=== PATIENT | male | born 1940 | race African-American/Black ===

== ENCOUNTER → 2021-03-17 | Day surgery (SDC) | payer MEDICARE ==
[~2021-03-17] VITALS: Ht 185.4 cm; Wt 109.0 kg
[~2021-03-17] MED LIST: ASPI325T8 PO; CHOL5000 PO; CRESTOR5 MG PO; EPLE50TA3 PO; FLUT16SP NS; FURO40TA4 PO; IMIP10TA2 PO; LIDOCAINE 1%/EPI 1:100,000 20 ML VIAL. INJ ONE; LORA10TA3 PO; LOSA-73 PO; TAMS0.4C97 PO
[2021-03-17 10:51] VITALS: BP 123/74
--- NOTE | 2021-03-17 13:01 | PDOC ---
SURGICAL PROGRESS NOTE DATE: 03/17/21 TIME: 13:00 No change in dictated H&P Vital Signs Vital Signs Date Time Temp Pulse Resp B/P (MAP) Pulse Ox O2 Delivery O2 Flow Rate FiO2 03/17/21 10:51 64 20 97 Justicifation of Admission Dx: Justifications for Admission: Justification of Admission Dx: Yes YAA LANGE MD Mar 17, 2021 13:01
--- NOTE | 2021-03-17 13:03 | PDOC ---
SURGICAL PROGRESS NOTE DATE: 03/17/21 TIME: 13:01 Op Note: Surgeon........................................Jean Pre and post op diag........................mass right upper lateral back Anesthesia.....................................1% lidocaine with epi Procedure.......................................excision mass back......8cm incision. Drains............................................none Blood loss.....................................5cc Fluids...........................................none condition......................................satisfactory Vital Signs Vital Signs Date Time Temp Pulse Resp B/P (MAP) Pulse Ox O2 Delivery O2 Flow Rate FiO2 03/17/21 10:51 64 20 97 Justicifation of Admission Dx: Justifications for Admission: Justification of Admission Dx: Yes YAA LANGE MD Mar 17, 2021 13:03
--- NOTE | 2021-03-17 13:15 | DISCH ---
DISCHARGE INSTRUCTIONS Condition on Discharge Condition on Discharge: Stable Activity After Discharge Activity Instructions for Disc: No restrictions Diet after Discharge Diet after Discharge: [place] Additional Diet Restrictions: resume pre op diat Wound Incision Care Other wound/incision instructi: leave dressing in tact adn do not change Follow-Up Follow up with: call and make appt to see me in 10-14 days YAA LANGE MD Mar 17, 2021 13:15
--- NOTE | 2021-03-18 02:57 | OP ---
DATE OF SURGERY: 03/17/2021 SURGEON: Tano Pena MD PREOPERATIVE DIAGNOSIS: Tumor, right upper back just medial to the posterior axillary line. POSTOPERATIVE DIAGNOSIS: Tumor, right upper back just medial to the posterior axillary line. ANESTHESIA: 1% lidocaine with epinephrine. PROCEDURE: Excision of mass, right upper back. DESCRIPTION OF PROCEDURE: The affected area was properly prepped and draped in routine fashion, keeping the arm out of the way, so that we could clearly see the mass. The mass was about 3 cm in size totally, but it was quite deep and we had to make a longer incision to get it all out and the incision totally was 8 cm. The area had been properly prepped and draped. We then used a 15 blade to make a fusiform incision longitudinally into the skin. We carried this through the skin into the subQ. We had identified the mass and slowly using Metzenbaum scissors, divided it from the surrounding structures. We did not enter the mass, but kept it completely ____. It was quite deep. It went about almost down to the fascia, but not under the fascia. We slowly removed this and sent it to the lab for pathologic examination. The resultant defect had minimal bleeding, but cautery was used on 2 or 3 occasions. We undermined some of the deeper subQ, so the wound would come together without tension and we therefore did this with cautery and Metzenbaum scissors. We then used 4-0 Vicryl to approximate the subcutaneous tissues in interrupted fashion. We then used more 4-0 Vicryl to approximate the deep dermis and used #4-0 nylon or Ethibond to close the wound in interrupted sutures. This having been done, we inspected the area. There was no further bleeding, no problems and we placed a small Tegaderm dressing over this and the procedure was terminated. As stated before, the total size including the margins was 8 cm. The procedure was now terminated. The dressing had been placed. BLOOD LOSS: 5 mL. FLUIDS GIVEN: None. DRAINS: No drains were used. CONDITION: The condition of the patient was satisfactory as he was returned to the recovery room and the holding area. BELLA/PETE DR: Billy TID: [id number]
--- NOTE | 2021-03-18 09:15 | PREOP HP ---
DATE OF SERVICE: 03/17/2021 HISTORY OF PRESENT ILLNESS: The patient is referred by Dr. Chris Hinojosa because of a mass of the right upper back. The patient noticed that he underwent a study at [facility] and was told that was there. He has not had any pain with it. He saw Dr. Hinojosa, the desktop administrator and he thought it is best to be removed. He could not treat it otherwise. Dr. Hinojosa is a desktop administrator. PAST MEDICAL HISTORY: Shows normal childhood diseases. He has had apparently colon cancer and had a colon resection, also had atrial fibrillation and had ablation and now does not have that. He has hypertension, for which he takes medication. Does not have diabetes or other problems. No evidence of coronary artery disease. ALLERGIES: The patient has no allergies. SOCIAL HISTORY: Drinks only socially. Does not smoke. Does not use illicit drugs. PHYSICAL EXAMINATION: GENERAL: Shows an alert male in no acute distress. HEAD, EYES, EARS, NOSE AND THROAT: Grossly normal. CHEST: Clear bilaterally to auscultation. HEART: Had no murmurs, heaves, friction rubs or thrills, and the rate was 70 beats per minute and it was regular. ABDOMEN: Had a scar of the previous surgery. He has a small umbilical hernia and I am not sure if that is ventral or not. EXTREMITIES: He also takes some medicine for dependent edema as his ankles swell up and he does have 2+ pitting edema of both lower extremities. Some discoloration of the right shank distally, most likely from stasis. BACK: Examination of the back does show about a 3 cm mass. It is at the right upper back laterally and looks like it is just above the scapula and it is movable, but it is not attached to underlying structures. No pus is noted. I did not squeeze it and it goes into the subQ. IMPRESSION: 1. Atrial fibrillation, treated. 2. Treated cancer of the colon. 3. Hypertension. 4. Mass of the right back. PLAN: We will plan to excise this per the recommendations of the desktop administrator and the patient. He understands the risks and wishes this to be done. BELLA/NIDIA DR: Billy TID: [id number]
--- NOTE | 2021-03-18 16:17 | PATHOLOGY ---
[facility] Accession Number: [id number] . 01 Material submitted: . back - RIGHT UPPER BACK MASS. Modifiers: right, upper . 02 Diagnosis: Skin and subcutaneous tissue, right upper back mass excision: - Follicular cyst, infundibular type. (JPM:serjio; 03/18/2021) QMS 03/18/2021 1413 Local . 02 Comment: There is no evidence of malignancy. (JPM:serjio; 03/18/2021) . 02 Electronically signed: . Teo Barrientos MD, Pathologist NPI- [id number] . 01 Gross description: . The specimen is received in formalin, labeled "Sujit Fine, right upper back mass". Received is an ellipse of skin measuring 4.2 x 2.1 x 1.6 cm in greatest dimensions. The epidermal surface displays a well-defined, depressed, dark brown crusted lesion measuring 1.1 x 0.5 cm. The surgical margin is inked. Sectioning reveals a possible intact cystic structure filled with dark brown, friable material measuring 1.2 cm. Batch Mixer Operator sections are submitted in cassette A1-A2. ([facility]; 03/17/2021) NRI/NRI 03/17/20212048 Local . 02 Pathologist provided ICD-10: L72.9 . 02 CPT . 077232 Specimen Comment: A courtesy copy of this report has been sent to [phone], [phone] Specimen Comment: [id number] Specimen Comment: Report sent to / DR SANDOVAL Specimen Comment: A duplicate report has been generated due to demographic updates. Performed at: [address], [place] [id number] MD Wilman Lawrence MD Phone: [phone] Performed at: [address] [id number] MD Teo Barrientos MD Phone: [phone]
== END | disposition home or self-care (01) ==
LOC: SURG 10:16
PROVIDERS: ATTEND Specialist
DX: L72.9 Follicular cyst of the skin and subcutaneous tissue, unspecified (principal); R22.2 Localized swelling, mass and lump, trunk; I11.0 Hypertensive heart disease with heart failure; I50.9 Heart failure, unspecified; I48.91 Unspecified atrial fibrillation; E78.00 Pure hypercholesterolemia, unspecified; M19.90 Unspecified osteoarthritis, unspecified site; Z87.891 Personal history of nicotine dependence; Z79.82 Long term (current) use of aspirin; Z79.899 Other long term (current) drug therapy; Z98.890 Other specified postprocedural states; Z72.89 Other problems related to lifestyle
CPT/HCPCS: 11406; 88304; J3490